=== PATIENT | female | born 1945 | race Caucasian/White ===

== ENCOUNTER → 2016-06-12 | Outpatient (CLI) | payer MEDICARE, BC ==
[~2016-06-12] MED LIST: ATENOLOL; ATIVAN 0.50.5 MG/TAB PO; BACTRIM DS 8001 TAB PO; CARAFATE 1GM1 G PO; CELEXA 20MG20 MG/TAB PO; COVERA-HS240 MG PO; DESYREL; DIFLUCAN200 MG PO; DILAUDID 2MG TAB2 MG PO; ESCITALOPRAM; ESKALITH; ESKALITH C450 MG/TAB PO; FLEXERIL 1010 MG/TAB PO; FUROSEMIDE; LEXAPRO 5MG5 MG PO; LIPITOR20 MG PO; MAGIC MOUTH PO; NEURONTIN100 MG/CAP PO; NEXIUM 40MG40 MG PO; NEXIUM PO; NORCO 325 MG-51 TAB PO; NORCO 325 MG-7.1 TAB PO; PAMELOR50 MG PO; PERCOCET 325 MG1 TAB PO; PHENERGAN 25 TA25 MG PO; PHENERGAN25 MG RC; PLAVIX 75MG TAB75 MG PO; PREMARIN .3MG0.3 MG PO; PREMARIN0.625 MG PO; PRINIVIL20 MG PO; TOPAMAX 100MG100 M1 PO; VERAPAMIL
== END ==
LOC: COL.RAD 10:42
DX: M25.572 Pain in left ankle and joints of left foot (principal)
CPT/HCPCS: J3301

== ENCOUNTER 2016-06-25 15:46 | Emergency (ER) | payer MEDICARE, BC ==
[~2016-06-25] VITALS: Ht 160 cm; Wt 90.9 kg
[~2016-06-25 15:46] MED LIST changes: -BACTRIM DS 8001 TAB PO; -DIFLUCAN200 MG PO; -LIPITOR20 MG PO; -MAGIC MOUTH PO; -NEURONTIN100 MG/CAP PO; -PLAVIX 75MG TAB75 MG PO; -PRINIVIL20 MG PO
[2016-06-25 15:50] VITALS: TEMP 98.1
[2016-06-25 16:03] LABS: BASO % 0.2 % (0.0-2.0); EOS # 0.1 (0.0-0.7); EOS % 0.4 % (0-4.0); GRAN # 8.4 (1.4-6.5); HEMATOCRIT 42.3 % (37.0-47.0); HEMOGLOBIN 13.4 g/dl (12.5-16.0); LYMPH % 29.1 % (20.0-51.0); MEAN CELL VOLUME 91 fl (80.0-100.0); MEAN CORPUSCULAR HEMOGLOBIN 29 pg (27.0-31.0); MEAN CORPUSCULAR HGB CONC 32 g/dl (33.0-37.0); MEAN PLATELET VOLUME 9.2 fl (7.4-10.4); MONO # 1.1 (0.1-0.6); MONO % 7.7 % (1.7-9.3); PLATELET COUNT 321 K/mm3 (130-400); RED BLOOD COUNT 4.64 M/mm3 (4.10-5.30); REDCELL DISTRIBUTION WIDTH-CV 16.8 % (11.5-14.5); WHITE BLOOD COUNT 13.6 K/mm3 (4.8-10.8)
[2016-06-25 16:09] LABS: PROTHROMBIN TIME 10.9 SECONDS (9.7-12.8)
[2016-06-25 16:12] LABS: PARTIAL THROMBOPLASTIN TIME 26.5 SECONDS (26.0-37.0)
[2016-06-25 16:13] LABS: ALANINE AMINOTRANSFERASE 43 U/L (9-52); ALBUMIN 4.1 gm/dL (3.5-5.0); ALKALINE PHOSPHATASE 103 U/L (50-136); ANION GAP 12 mmol/L (7-16); BILIRUBIN,TOTAL 0.6 mg/dL (0.0-1.0); BLOOD UREA NITROGEN 22 mg/dL (7-17); CALCIUM 9.1 mg/dL (8.4-10.2); CARBON DIOXIDE 26 mmol/L (22-30); CHLORIDE 104 mmol/L (98-107); CREATININE, serum 0.86 mg/dL (0.52-1.25); GLUCOSE 79 mg/dL (74-106); LIPASE 194 U/L (23-300); POTASSIUM 4.5 mmol/L (3.4-5.0); SODIUM 141 mmol/L (137-145); TOTAL PROTEIN 7.7 gm/dL (6.4-8.2)
[2016-06-25 16:25] LABS: B-TYPE NATRIURETIC PEPTIDE 119 pg/mL (0-125)
[2016-06-25 16:27] LABS: TROPONIN-I < 0.012 ng/mL (0.000-0.034)
[2016-06-25 16:52] VITALS: BP 164/88; PULSE 76
[2016-06-25] MEDS ORDERED: DIFLUCAN200 MG PO (16:57)
[2016-06-25] MEDS ORDERED: MAGIC MOUTH PO (16:57)
== END 2016-06-25 17:20 | disposition home or self-care (01) ==
LOC: COL.ER 15:46
PROVIDERS: Emergency Medicine
DX: B37.0 Candidal stomatitis (principal); K05.10 Chronic gingivitis, plaque induced; I10 Essential (primary) hypertension

== ENCOUNTER → 2016-08-08 | Outpatient (REF) ==
[~2016-08-08] MED LIST changes: +BACTRIM DS 8001 TAB PO; +DIFLUCAN200 MG PO; +LIPITOR20 MG PO; +MAGIC MOUTH PO; +NEURONTIN100 MG/CAP PO; +PLAVIX 75MG TAB75 MG PO; +PRINIVIL20 MG PO
== END ==
LOC: ZLAB.WCH 15:08
DX: Z01.89 Encounter for other specified special examinations (principal)

== ENCOUNTER → 2016-09-22 | Outpatient (CLI) | payer MEDICARE, BC ==
[2016-09-22 18:13] LABS: BASO % 0.5 % (0.0-2.0); EOS # 0.2 (0.0-0.7); EOS % 2.3 % (0-4.0); GRAN # 4.1 (1.4-6.5); GRAN % 52.7 % (42.2-75.2); LYMPH # 2.9 (1.2-3.4); LYMPH % 37.4 % (20.0-51.0); MEAN CELL VOLUME 93 fl (80.0-100.0); MEAN CORPUSCULAR HGB CONC 32 g/dl (33.0-37.0); MEAN PLATELET VOLUME 9.9 fl (7.4-10.4); MONO # 0.5 (0.1-0.6); MONO % 6.6 % (1.7-9.3); PLATELET COUNT 310 K/mm3 (130-400); RED BLOOD COUNT 3.68 M/mm3 (4.10-5.30); REDCELL DISTRIBUTION WIDTH-CV 17.4 % (11.5-14.5); WHITE BLOOD COUNT 7.7 K/mm3 (4.8-10.8)
[2016-09-22 18:26] LABS: ADJUSTED CALCIUM 9.4 mg/dL (8.4-10.2); ALBUMIN 3.8 gm/dL (3.5-5.0); BILIRUBIN,TOTAL 0.7 mg/dL (0.0-1.0); CALCIUM 9.2 mg/dL (8.4-10.2); CREATININE, serum 0.85 mg/dL (0.52-1.25); HEMATOCRIT 34.2 % (37.0-47.0); HEMOGLOBIN 10.9 g/dl (12.5-16.0); MEAN CORPUSCULAR HEMOGLOBIN 30 pg (27.0-31.0); TOTAL PROTEIN 6.9 gm/dL (6.4-8.2)
== END ==
LOC: COL.LAB 17:25
PROVIDERS: Physician Assistant
DX: R60.9 Edema, unspecified (principal)

== ENCOUNTER 2016-10-25 12:53 | Observation (INO) | payer MEDICARE, BC ==
[~2016-10-25] VITALS: Ht 160 cm; Wt 95.0 kg
[~2016-10-25 12:53] MED LIST changes: -BACTRIM DS 8001 TAB PO; -LIPITOR20 MG PO; -NEURONTIN100 MG/CAP PO; -PLAVIX 75MG TAB75 MG PO; -PRINIVIL20 MG PO
[2016-10-25] MEDS ORDERED: PRINIVIL20 MG PO (13:18)
[2016-10-25] MEDS ORDERED: FLEXERIL 1010 MG/TAB PO (13:18)
[2016-10-25] MEDS ORDERED: NEURONTIN100 MG/CAP PO (13:19)
[2016-10-25 13:32] LABS: BASO % 0.3 % (0.0-2.0); EOS # 0.1 (0.0-0.7); EOS % 1.8 % (0-4.0); GRAN # 4.4 (1.4-6.5); GRAN % 55.9 % (42.2-75.2); LYMPH # 2.8 (1.2-3.4); LYMPH % 35.9 % (20.0-51.0); MEAN CELL VOLUME 91 fl (80.0-100.0); MEAN CORPUSCULAR HGB CONC 31 g/dl (33.0-37.0); MEAN PLATELET VOLUME 9.4 fl (7.4-10.4); MONO # 0.5 (0.1-0.6); MONO % 5.8 % (1.7-9.3); PLATELET COUNT 285 K/mm3 (130-400); RED BLOOD COUNT 3.93 M/mm3 (4.10-5.30); REDCELL DISTRIBUTION WIDTH-CV 16.9 % (11.5-14.5); WHITE BLOOD COUNT 7.9 K/mm3 (4.8-10.8)
[2016-10-25 13:38] LABS: HEMATOCRIT 35.9 % (37.0-47.0); HEMOGLOBIN 11.2 g/dl (12.5-16.0); MEAN CORPUSCULAR HEMOGLOBIN 28 pg (27.0-31.0)
[2016-10-25 13:44] LABS: ADJUSTED CALCIUM 8.7 mg/dL (8.4-10.2); ALBUMIN 4.2 gm/dL (3.5-5.0); BILIRUBIN,TOTAL 0.6 mg/dL (0.0-1.0); CALCIUM 8.9 mg/dL (8.4-10.2); CREATININE, serum 1.08 mg/dL (0.52-1.25); POTASSIUM 4.5 mmol/L (3.4-5.0); TOTAL PROTEIN 7.7 gm/dL (6.4-8.2)
[2016-10-25] MEDS ORDERED: BACTRIM DS 8001 TAB PO (15:31)
[2016-10-25 17:33] VITALS: BP 138/57; PULSE 80; TEMP 98.1
[2016-10-25 18:26] LABS: PHOSPHOROUS 3.3 mg/dL (2.5-4.5)
[2016-10-25 22:00] LABS: PH 6 (5-8); SQUAMOUS EPITHELIAL 0-2 /hpf; URINE APPEARANCE Clear; URINE BACTERIA None Seen /hpf; URINE BILIRUBIN Negative (NEGATIVE); URINE BLOOD Negative (NEGATIVE); URINE COLOR Yellow; URINE GLUCOSE Negative (NEGATIVE); URINE KETONE Negative (NEGATIVE); URINE RBC 0-2 /hpf; URINE UROBILINOGEN Negative (NEGATIVE); URINE WBC 0-2 /hpf
[2016-10-25 22:13] VITALS: BP 138/42; PULSE 83; TEMP 98.6
[2016-10-25 23:45] VITALS: BP 122/50; PULSE 86; TEMP 98.2
[2016-10-26 03:57] VITALS: BP 121/59; PULSE 87; TEMP 97.1
[2016-10-26 08:43] VITALS: BP 119/49; PULSE 80; TEMP 98
[2016-10-26 11:57] VITALS: BP 148/60; PULSE 79; TEMP 97.8
[2016-10-26 16:14] VITALS: BP 133/61; PULSE 77; TEMP 98.1
[2016-10-26 21:35] VITALS: BP 129/78; PULSE 83; TEMP 97.9
[2016-10-27 01:08] VITALS: BP 132/56; PULSE 85; TEMP 97.9
[2016-10-27 04:22] VITALS: BP 142/59; PULSE 81; TEMP 97.8
[2016-10-27 07:59] VITALS: BP 146/55; PULSE 80
[2016-10-27] MEDS ORDERED: PLAVIX 75MG TAB75 MG PO (09:34)
[2016-10-27 11:51] VITALS: BP 131/53; PULSE 79; TEMP 98.1
[2016-10-27] MEDS ORDERED: LIPITOR20 MG PO (14:40)
== END 2016-10-27 15:21 | disposition home or self-care (01) ==
LOC: COL.ER 12:53 → MEDICAL 15:09
PROVIDERS: Family Medicine; Physician Assistant
DX: I69.328 Other speech and language deficits following cerebral infarction (principal); I10 Essential (primary) hypertension; K21.9 Gastro-esophageal reflux disease without esophagitis; G89.29 Other chronic pain; M54.9 Dorsalgia, unspecified; R53.1 Weakness; M81.0 Age-related osteoporosis without current pathological fracture; N39.0 Urinary tract infection, site not specified; M85.80 Other specified disorders of bone density and structure, unspecified site; J98.11 Atelectasis; I51.7 Cardiomegaly; R09.89 Other specified symptoms and signs involving the circulatory and respiratory systems; I35.0 Nonrheumatic aortic (valve) stenosis; Z87.891 Personal history of nicotine dependence
CPT/HCPCS: 99232-AI; A9585; G0378; G8978-GP; G8979-GP; G8987-GO; G8988-GO; G9162-GN; G9163-GN; G9164-GN; J1650; J7030

== ENCOUNTER 2017-02-06 12:22 | Emergency (ER) | payer MEDICARE, BC ==
[~2017-02-06] VITALS: Ht 160 cm; Wt 96.4 kg
[~2017-02-06 12:22] MED LIST changes: +BACTRIM DS 8001 TAB PO; +LIPITOR20 MG PO; +NEURONTIN100 MG/CAP PO; +PLAVIX 75MG TAB75 MG PO; +PRINIVIL20 MG PO
[2017-02-06 12:27] VITALS: TEMP 97.3
[2017-02-06 13:21] LABS: BASO % 0.4 % (0.0-2.0); EOS # 0.2 (0.0-0.7); EOS % 2.8 % (0-4.0); GRAN # 3.1 (1.4-6.5); GRAN % 45.8 % (42.2-75.2); LYMPH % 44.4 % (20.0-51.0); MEAN CELL VOLUME 85 fl (80.0-100.0); MEAN CORPUSCULAR HGB CONC 31 g/dl (33.0-37.0); MEAN PLATELET VOLUME 10.3 fl (7.4-10.4); MONO # 0.4 (0.1-0.6); MONO % 6.3 % (1.7-9.3); PLATELET COUNT 280 K/mm3 (130-400); RED BLOOD COUNT 4.02 M/mm3 (4.10-5.30); REDCELL DISTRIBUTION WIDTH-CV 18.9 % (11.5-14.5); WHITE BLOOD COUNT 6.7 K/mm3 (4.8-10.8)
[2017-02-06 13:25] LABS: ADJUSTED CALCIUM 9.2 mg/dL (8.4-10.2); ALANINE AMINOTRANSFERASE 26 U/L (9-52); ALBUMIN 4.1 gm/dL (3.5-5.0); ALKALINE PHOSPHATASE 74 U/L (50-136); ANION GAP 14 mmol/L (7-16); BILIRUBIN,TOTAL 0.6 mg/dL (0.0-1.0); BLOOD UREA NITROGEN 13 mg/dL (7-17); CALCIUM 9.3 mg/dL (8.4-10.2); CARBON DIOXIDE 22 mmol/L (22-30); CHLORIDE 105 mmol/L (98-107); CREATININE, serum 0.89 mg/dL (0.52-1.25); GLUCOSE 113 mg/dL (74-106); POTASSIUM 4.4 mmol/L (3.4-5.0); SODIUM 141 mmol/L (137-145); TOTAL PROTEIN 7.4 gm/dL (6.4-8.2)
[2017-02-06 13:28] LABS: PROTHROMBIN TIME 10.8 SECONDS (9.7-12.8)
[2017-02-06 13:31] LABS: PARTIAL THROMBOPLASTIN TIME 19.7 SECONDS (26.0-37.0)
[2017-02-06 13:36] LABS: TROPONIN-I < 0.012 ng/mL (0.000-0.034)
[2017-02-06 13:52] LABS: HEMATOCRIT 34.3 % (37.0-47.0); HEMOGLOBIN 10.7 g/dl (12.5-16.0); MEAN CORPUSCULAR HEMOGLOBIN 27 pg (27.0-31.0)
[2017-02-06 16:49] VITALS: BP 120/63; PULSE 69
== END 2017-02-06 16:51 | disposition home or self-care (01) ==
LOC: COL.ER 12:22
PROVIDERS: Emergency Medicine
DX: R53.1 Weakness (principal); I10 Essential (primary) hypertension; K21.9 Gastro-esophageal reflux disease without esophagitis; E78.5 Hyperlipidemia, unspecified; Z86.73 Personal history of transient ischemic attack (TIA), and cerebral infarction without residual deficits; Z87.891 Personal history of nicotine dependence; Z90.89 Acquired absence of other organs; Z90.710 Acquired absence of both cervix and uterus; Z90.49 Acquired absence of other specified parts of digestive tract
CPT/HCPCS: J7040

== ENCOUNTER 2017-02-26 13:15 | Outpatient (RCR) | payer MEDICARE, BC | END 2017-05-20 | disposition home or self-care (01) | LOC: WSST | DX: I69.922 Dysarthria following unspecified cerebrovascular disease (principal); I69.920 Aphasia following unspecified cerebrovascular disease; I69.928 Other speech and language deficits following unspecified cerebrovascular disease | CPT/HCPCS: G9162-GN; G9163-GN ==

== ENCOUNTER → 2017-04-13 | Outpatient (CLI) | payer MEDICARE, BC | LOC: COL.RAD 14:08 | DX: M25.551 Pain in right hip (principal) | CPT/HCPCS: J3301; Q9967 ==

== ENCOUNTER 2017-06-11 08:38 | Outpatient (CLI) | payer MEDICARE, BC ==
[~2017-06-11] VITALS: Ht 160 cm; Wt 89.1 kg
[2017-06-11] VITALS (8 sets, daily range): BP systolic 115–161; BP diastolic 63–85; PULSE 79–85
[~2017-06-11 08:38] MED LIST changes: +NEURONTIN300 MG/CAP PO; +PROTONIX 40MG T40 MG PO; +VERELAN240 MG PO; +ZANAFLEX 4MG TAB4 MG PO
== END 2017-06-11 12:00 | disposition home or self-care (01) ==
LOC: COL.RAD 08:38
DX: M48.062 Spinal stenosis, lumbar region with neurogenic claudication (principal); M43.16 Spondylolisthesis, lumbar region; M51.26 Other intervertebral disc displacement, lumbar region; Z98.1 Arthrodesis status; Z96.89 Presence of other specified functional implants; Z98.890 Other specified postprocedural states

== ENCOUNTER 2017-08-02 10:03 | Inpatient (IN) | payer MEDICARE, BC ==
[~2017-08-02] VITALS: Ht 160 cm; Wt 84.5 kg
[2017-08-02 10:22] LABS: BASO % 0.3 % (0.0-2.0); EOS # 0.1 (0.0-0.7); EOS % 1.7 % (0-4.0); GRAN % 57.7 % (42.2-75.2); LYMPH # 2.2 (1.2-3.4); LYMPH % 32.1 % (20.0-51.0); MEAN CELL VOLUME 82 fl (80.0-100.0); MEAN CORPUSCULAR HGB CONC 32 g/dl (33.0-37.0); MEAN PLATELET VOLUME 9.6 fl (7.4-10.4); MONO # 0.6 (0.1-0.6); MONO % 8.1 % (1.7-9.3); PLATELET COUNT 268 K/mm3 (130-400); RED BLOOD COUNT 4.01 M/mm3 (4.10-5.30); REDCELL DISTRIBUTION WIDTH-CV 19.4 % (11.5-14.5)
[2017-08-02 10:23] LABS: HEMATOCRIT 32.7 % (37.0-47.0); HEMOGLOBIN 10.4 g/dl (12.5-16.0); MEAN CORPUSCULAR HEMOGLOBIN 26 pg (27.0-31.0)
[2017-08-02 10:30] LABS: INR 1.8 (0.8-3.0); PROTHROMBIN TIME 20.6 SECONDS (9.7-12.8)
[2017-08-02 10:32] LABS: PARTIAL THROMBOPLASTIN TIME 32.2 SECONDS (26.0-37.0)
[2017-08-02 10:39] LABS: ALANINE AMINOTRANSFERASE 29 U/L (9-52); ALBUMIN 3.5 gm/dL (3.5-5.0); ALKALINE PHOSPHATASE 72 U/L (50-136); ANION GAP 8 mmol/L (7-16); AST,SGOT 16 U/L (15-37); BILIRUBIN,TOTAL 0.5 mg/dL (0.0-1.0); BLOOD UREA NITROGEN 20 mg/dL (7-17); C-REACTIVE PROTEIN 1.3 mg/dL (0.0-0.9); CALCIUM 8.4 mg/dL (8.4-10.2); CARBON DIOXIDE 24 mmol/L (22-30); CHLORIDE 107 mmol/L (98-107); CREATININE, serum 1.23 mg/dL (0.52-1.25); GLUCOSE 92 mg/dL (74-106); SODIUM 139 mmol/L (137-145); TOTAL PROTEIN 6.5 gm/dL (6.4-8.2)
[2017-08-02] MEDS ORDERED: NORVASC 5MG5 MG/TAB PO (10:41)
[2017-08-02] MEDS ORDERED: LIPITOR20 MG PO (10:41)
[2017-08-02] MEDS ORDERED: ZESTRIL 20MG TA20 MG PO (10:42)
[2017-08-02] MEDS ORDERED: ELIQUIS 5MG PO (10:42)
[2017-08-02] MEDS ORDERED: NEURONTIN300 MG/CAP PO (10:42)
[2017-08-02] MEDS ORDERED: ZANAFLEX 4MG TAB4 MG PO (10:43)
[2017-08-02] MEDS ORDERED: PROTONIX 40MG T40 MG PO (10:43)
[2017-08-02] MEDS ORDERED: MULTAQ400 MG PO (10:43)
[2017-08-02 10:53] LABS: TROPONIN-I < 0.012 ng/mL (0.000-0.034)
[2017-08-02 11:52] LABS: ERYTHROCYTE SEDIMENTATION RATE 25 mm/hr (0-30)
[2017-08-02 13:20] VITALS: BP 99/64; PULSE 109; TEMP 97.6
[2017-08-02 15:32] VITALS: BP 113/65; PULSE 110; TEMP 97.7
[2017-08-02 16:45] VITALS: BP 106/62; BP 110/66; PULSE 100; PULSE 97
[2017-08-02 16:46] VITALS: BP 98/52; PULSE 111
[2017-08-02 19:07] VITALS: BP 127/57; PULSE 106; TEMP 97.8
[2017-08-02 23:29] VITALS: BP 103/57; PULSE 98; TEMP 98.1
[2017-08-03] VITALS (18 sets, daily range): BP systolic 97–132; BP diastolic 52–98; PULSE 92–123; TEMP 97.6–9831
[2017-08-03 06:52] LABS: BASO % 0.4 % (0.0-2.0); EOS # 0.2 (0.0-0.7); EOS % 2.9 % (0-4.0); GRAN # 2.6 (1.4-6.5); HEMATOCRIT 29.3 % (37.0-47.0); HEMOGLOBIN 9.1 g/dl (12.5-16.0); LYMPH # 2.3 (1.2-3.4); LYMPH % 41.2 % (20.0-51.0); MEAN CELL VOLUME 84 fl (80.0-100.0); MEAN CORPUSCULAR HEMOGLOBIN 26 pg (27.0-31.0); MEAN CORPUSCULAR HGB CONC 31 g/dl (33.0-37.0); MEAN PLATELET VOLUME 9.9 fl (7.4-10.4); MONO # 0.5 (0.1-0.6); MONO % 9.3 % (1.7-9.3); PLATELET COUNT 241 K/mm3 (130-400)
[2017-08-03 07:08] LABS: CALCIUM 7.2 mg/dL (8.4-10.2); CREATININE, serum 0.79 mg/dL (0.52-1.25); POTASSIUM 3.7 mmol/L (3.4-5.0)
[2017-08-03 09:02] LABS: IRON,SERUM 14 ug/dL (35-150)
[2017-08-03 09:11] LABS: TOTAL IRON BINDING CAPACITY 291 ug/dL (265-497)
[2017-08-03 09:38] LABS: FERRITIN 10 ng/mL (11-264)
[2017-08-03] MEDS ORDERED: LIDODERM 5% PATC1 EA TP (16:08)
[2017-08-03] MEDS ORDERED: FERRLECIT62.5 MG/5 IV (16:11)
[2017-08-03] MEDS ORDERED: NATURAL IRON65 MG PO (16:12)
[2017-08-03] MEDS ORDERED: PLAVIX 75MG TAB75 MG PO (16:17)
[2017-08-03] MEDS ORDERED: ELIQUIS 5MG PO (16:17)
== END 2017-08-03 18:54 | disposition home or self-care (01) | DRG 287 ==
LOC: COL.ER 10:03 → MEDICAL 11:18
PROVIDERS: Family Medicine; Physician Assistant
PROC: B2111ZZ Fluoroscopy of Multiple Coronary Arteries using Low Osmolar Contrast (ICD-10-PCS; principal; 2017-08-03)
PROC: B2151ZZ Fluoroscopy of Left Heart using Low Osmolar Contrast (ICD-10-PCS; 2017-08-03)
DX: I48.0 Paroxysmal atrial fibrillation (principal); Z66 Do not resuscitate; R07.89 Other chest pain; I10 Essential (primary) hypertension; M54.5 Low back pain; G89.29 Other chronic pain; I87.2 Venous insufficiency (chronic) (peripheral); Z87.891 Personal history of nicotine dependence; K21.9 Gastro-esophageal reflux disease without esophagitis; D50.9 Iron deficiency anemia, unspecified; Z85.41 Personal history of malignant neoplasm of cervix uteri
CPT/HCPCS: 99222-AI; 99239; C1760; C1894; J2060; J2250; J2916; J3010; J7030; Q9967

== ENCOUNTER 2017-08-06 07:30 | Outpatient (RCR) | payer MEDICARE, BC ==
[2017-08-04 08:07] VITALS: BP 125/75; PULSE 106; TEMP 97.7
[2017-08-05 07:38] VITALS: BP 105/61; PULSE 65; TEMP 98.7
[~2017-08-06] VITALS: Ht 160 cm; Wt 84.0 kg
[~2017-08-06 07:30] MED LIST changes: +ELIQUIS 5MG PO; +FERRLECIT62.5 MG/5 IV; +LIDODERM 5% PATC1 EA TP; +MULTAQ400 MG PO; +NATURAL IRON65 MG PO; +NORVASC 5MG5 MG/TAB PO; +ZESTRIL 20MG TA20 MG PO
[2017-08-06 07:45] VITALS: BP 94/42; PULSE 136; TEMP 97.4
[2017-08-06] MEDS ORDERED: PLAVIX 75MG TAB75 MG PO (07:52)
[2017-08-06] MEDS ORDERED: ELIQUIS 5MG PO (07:52)
[2017-08-06] MEDS ORDERED: FERROUS SU325 MG/TAB PO (07:53)
[2017-08-06] MEDS ORDERED: LIDODERM 5% PATC1 EA TP (07:54)
[2017-08-06 08:47] VITALS: BP 99/41; PULSE 124
[2017-08-06] MEDS ORDERED: LEXAPRO 10MG10 MG PO (10:41)
[2017-08-06] MEDS ORDERED: PACERONE200 MG PO (11:38)
== END 2017-08-06 12:20 | disposition home or self-care (01) ==
LOC: EUO 07:30
DX: D50.9 Iron deficiency anemia, unspecified (principal)
CPT/HCPCS: J2916

== ENCOUNTER 2017-08-06 08:52 | Emergency (ER) | payer MEDICARE, BC ==
[~2017-08-06] VITALS: Ht 160 cm; Wt 84.1 kg
[~2017-08-06 08:52] MED LIST changes: +FERROUS SU325 MG/TAB PO
[2017-08-06 08:56] VITALS: TEMP 97.8
[2017-08-06 09:37] LABS: BASO % 0.3 % (0.0-2.0); EOS # 0.1 (0.0-0.7); EOS % 1.7 % (0-4.0); GRAN # 4.1 (1.4-6.5); GRAN % 63.4 % (42.2-75.2); HEMATOCRIT 32.8 % (37.0-47.0); HEMOGLOBIN 10.3 g/dl (12.5-16.0); LYMPH # 1.8 (1.2-3.4); MEAN CELL VOLUME 83 fl (80.0-100.0); MEAN CORPUSCULAR HEMOGLOBIN 26 pg (27.0-31.0); MEAN CORPUSCULAR HGB CONC 31 g/dl (33.0-37.0); MEAN PLATELET VOLUME 9.5 fl (7.4-10.4); MONO # 0.5 (0.1-0.6); MONO % 7.3 % (1.7-9.3); PLATELET COUNT 243 K/mm3 (130-400); RED BLOOD COUNT 3.97 M/mm3 (4.10-5.30); REDCELL DISTRIBUTION WIDTH-CV 19.8 % (11.5-14.5)
[2017-08-06 09:49] LABS: ALANINE AMINOTRANSFERASE 29 U/L (9-52); ALBUMIN 3.6 gm/dL (3.5-5.0); ALKALINE PHOSPHATASE 64 U/L (50-136); ANION GAP 12 mmol/L (7-16); AST,SGOT 17 U/L (15-37); BILIRUBIN,TOTAL 0.3 mg/dL (0.0-1.0); BLOOD UREA NITROGEN 8 mg/dL (7-17); C-REACTIVE PROTEIN 1.1 mg/dL (0.0-0.9); CALCIUM 8.8 mg/dL (8.4-10.2); CARBON DIOXIDE 27 mmol/L (22-30); CHLORIDE 107 mmol/L (98-107); CREATININE, serum 0.98 mg/dL (0.52-1.25); GLUCOSE 109 mg/dL (74-106); POTASSIUM 3.6 mmol/L (3.4-5.0); SODIUM 145 mmol/L (137-145); TOTAL PROTEIN 6.5 gm/dL (6.4-8.2)
[2017-08-06 10:07] LABS: TROPONIN-I < 0.012 ng/mL (0.000-0.034)
[2017-08-06] MEDS ORDERED: LEXAPRO 10MG10 MG PO (10:41)
[2017-08-06 11:02] LABS: COLLECTION METHOD CLEAN CATCH
[2017-08-06 11:13] LABS: MUCOUS Present /lpf; PH 6 (5-8); URINE APPEARANCE Hazy; URINE BACTERIA Rare /hpf; URINE BILIRUBIN Negative (NEGATIVE); URINE BLOOD Negative (NEGATIVE); URINE COLOR Yellow; URINE GLUCOSE Negative (NEGATIVE); URINE KETONE Negative (NEGATIVE); URINE LEUKOCYTE ESTERASE Negative (NEGATIVE); URINE NITRATE Negative (NEGATIVE); URINE PROTEIN(semi-quant) Negative (NEGATIVE); URINE RBC 0-2 /hpf; URINE UROBILINOGEN Negative (NEGATIVE)
[2017-08-06] MEDS ORDERED: PACERONE200 MG PO (11:38)
[2017-08-06 12:29] VITALS: BP 121/74; PULSE 87
== END 2017-08-06 12:28 | disposition home or self-care (01) ==
LOC: COL.ER 08:52
PROVIDERS: Emergency Medicine
DX: R00.0 Tachycardia, unspecified (principal); T45.4X5A Adverse effect of iron and its compounds, initial encounter; I48.91 Unspecified atrial fibrillation; I10 Essential (primary) hypertension; E78.5 Hyperlipidemia, unspecified; D50.9 Iron deficiency anemia, unspecified; Z86.73 Personal history of transient ischemic attack (TIA), and cerebral infarction without residual deficits; Z79.01 Long term (current) use of anticoagulants; Z79.02 Long term (current) use of antithrombotics/antiplatelets
CPT/HCPCS: J1160; J7030

== ENCOUNTER → 2017-10-16 | Outpatient (CLI) | payer MEDICARE, BC ==
[~2017-10-16] MED LIST changes: +LEXAPRO 10MG10 MG PO; +PACERONE200 MG PO
[2017-10-16 10:52] LABS: ALBUMIN 3.8 gm/dL (3.5-5.0); BILIRUBIN,TOTAL 0.6 mg/dL (0.0-1.0); CALCIUM 9.7 mg/dL (8.4-10.2); CREATININE, serum 0.86 mg/dL (0.52-1.25); POTASSIUM 3.7 mmol/L (3.4-5.0); TOTAL PROTEIN 7.2 gm/dL (6.4-8.2)
== END ==
LOC: COL.LAB 10:10
PROVIDERS: Internal Medicine Cardiovascular Disease
DX: E78.5 Hyperlipidemia, unspecified (principal)

== ENCOUNTER → 2017-12-20 | Outpatient (CLI) | payer MEDICARE, BC | LOC: COL.RAD 09:21 | DX: N20.0 Calculus of kidney (principal); K57.30 Diverticulosis of large intestine without perforation or abscess without bleeding; R10.9 Unspecified abdominal pain; D50.9 Iron deficiency anemia, unspecified; Z98.890 Other specified postprocedural states | CPT/HCPCS: Q9967 ==

== ENCOUNTER 2018-03-13 12:12 | Emergency (ER) | payer MEDICARE, BC ==
[~2018-03-13] VITALS: Ht 160 cm; Wt 79.5 kg
[2018-03-13 12:23] VITALS: BP 123/58; TEMP 97.3
[2018-03-13 13:07] LABS: BASO % 0.2 % (0.0-2.0); EOS # 0.1 (0.0-0.7); EOS % 0.9 % (0-4.0); GRAN # 8.6 (1.4-6.5); GRAN % 66.5 % (42.2-75.2); HEMATOCRIT 39.7 % (37.0-47.0); HEMOGLOBIN 13.2 g/dl (12.5-16.0); LYMPH # 3.1 (1.2-3.4); LYMPH % 23.8 % (20.0-51.0); MEAN CELL VOLUME 96 fl (80.0-100.0); MEAN CORPUSCULAR HEMOGLOBIN 32 pg (27.0-31.0); MEAN CORPUSCULAR HGB CONC 33 g/dl (33.0-37.0); MEAN PLATELET VOLUME 10.6 fl (7.4-10.4); MONO % 7.7 % (1.7-9.3); PLATELET COUNT 185 K/mm3 (130-400); RED BLOOD COUNT 4.12 M/mm3 (4.10-5.30); REDCELL DISTRIBUTION WIDTH-CV 13.1 % (11.5-14.5)
[2018-03-13 13:10] LABS: INR 1.6 (0.8-3.0); PROTHROMBIN TIME 18.4 SECONDS (9.7-12.8)
[2018-03-13 13:12] LABS: PARTIAL THROMBOPLASTIN TIME 32.7 SECONDS (26.0-37.0)
[2018-03-13 13:16] LABS: ALBUMIN 3.8 gm/dL (3.5-5.0); BILIRUBIN,TOTAL 0.8 mg/dL (0.0-1.0); CALCIUM 8.6 mg/dL (8.4-10.2); CREATININE, serum 1.17 mg/dL (0.52-1.25); POTASSIUM 4.2 mmol/L (3.4-5.0); TOTAL PROTEIN 6.9 gm/dL (6.4-8.2)
[2018-03-13] MEDS ORDERED: LYRICA 75MG CAP75 MG PO (13:45)
[2018-03-13] MEDS ORDERED: PROLIA60 MG/ML SQ (13:47)
[2018-03-13] MEDS ORDERED: NORCO 325 MG-7.1 TAB PO (15:42)
[2018-03-13 17:20] LABS: COLLECTION METHOD CLEAN CATCH
[2018-03-13 17:33] LABS: HYALINE CAST >12 /lpf; MUCOUS Present /lpf; PH 5 (5-8); SQUAMOUS EPITHELIAL 0-2 /hpf; URINE APPEARANCE Clear; URINE BACTERIA None Seen /hpf; URINE BILIRUBIN Negative (NEGATIVE); URINE BLOOD 3+ (NEGATIVE); URINE COLOR Yellow; URINE GLUCOSE Negative (NEGATIVE); URINE KETONE Negative (NEGATIVE); URINE LEUKOCYTE ESTERASE Negative (NEGATIVE); URINE NITRATE Negative (NEGATIVE); URINE PROTEIN(semi-quant) Negative (NEGATIVE); URINE RBC >50 /hpf; URINE UROBILINOGEN Negative (NEGATIVE)
[2018-03-13 17:55] VITALS: PULSE 64
== END 2018-03-13 17:55 | disposition home or self-care (01) ==
LOC: COL.ER 12:12
PROVIDERS: Emergency Medicine
DX: S52.122A Displaced fracture of head of left radius, initial encounter for closed fracture (principal); S22.32XA Fracture of one rib, left side, initial encounter for closed fracture; S00.03XA Contusion of scalp, initial encounter; I10 Essential (primary) hypertension; I48.91 Unspecified atrial fibrillation; Z79.01 Long term (current) use of anticoagulants; Z86.73 Personal history of transient ischemic attack (TIA), and cerebral infarction without residual deficits; W10.9XXA Fall (on) (from) unspecified stairs and steps, initial encounter
CPT/HCPCS: J3010; Q4050

== ENCOUNTER 2018-03-22 14:41 | Emergency (ER) | payer MEDICARE, BC ==
[~2018-03-22] VITALS: Ht 160 cm; Wt 79.5 kg
[~2018-03-22 14:41] MED LIST changes: +LYRICA 75MG CAP75 MG PO; +PROLIA60 MG/ML SQ
[2018-03-22 14:43] VITALS: TEMP 98.2
[2018-03-22 15:33] LABS: BASO % 0.4 % (0.0-2.0); EOS # 0.2 (0.0-0.7); EOS % 2.4 % (0-4.0); GRAN # 5.5 (1.4-6.5); HEMOGLOBIN 12.5 g/dl (12.5-16.0); LYMPH # 2.8 (1.2-3.4); LYMPH % 29.6 % (20.0-51.0); MEAN CELL VOLUME 94 fl (80.0-100.0); MEAN CORPUSCULAR HEMOGLOBIN 32 pg (27.0-31.0); MEAN CORPUSCULAR HGB CONC 34 g/dl (33.0-37.0); MEAN PLATELET VOLUME 9.7 fl (7.4-10.4); MONO # 0.8 (0.1-0.6); MONO % 8.4 % (1.7-9.3); PLATELET COUNT 318 K/mm3 (130-400); RED BLOOD COUNT 3.94 M/mm3 (4.10-5.30); REDCELL DISTRIBUTION WIDTH-CV 13.2 % (11.5-14.5)
[2018-03-22 15:37] LABS: INR 1.4 (0.8-3.0); PROTHROMBIN TIME 16.1 SECONDS (9.7-12.8)
[2018-03-22 15:49] LABS: ALBUMIN 3.8 gm/dL (3.5-5.0); BILIRUBIN,TOTAL 0.8 mg/dL (0.0-1.0); CALCIUM 7.9 mg/dL (8.4-10.2); CREATININE, serum 0.82 mg/dL (0.52-1.25); POTASSIUM 3.2 mmol/L (3.4-5.0); TOTAL PROTEIN 6.8 gm/dL (6.4-8.2)
[2018-03-22 15:55] LABS: COLLECTION METHOD CLEAN CATCH
[2018-03-22 16:06] LABS: MUCOUS Present /lpf; PH 6 (5-8); SQUAMOUS EPITHELIAL None Seen /hpf; URINE APPEARANCE Hazy; URINE BACTERIA Rare /hpf; URINE BILIRUBIN Negative (NEGATIVE); URINE BLOOD 2+ (NEGATIVE); URINE COLOR Amber; URINE GLUCOSE Negative (NEGATIVE); URINE KETONE Negative (NEGATIVE); URINE LEUKOCYTE ESTERASE 2+ (NEGATIVE); URINE NITRATE Positive (NEGATIVE); URINE PROTEIN(semi-quant) 1+ (NEGATIVE); URINE UROBILINOGEN >=4.0 mg/dL (NEGATIVE)
[2018-03-22 19:06] VITALS: BP 150/71; PULSE 66
== END 2018-03-22 19:13 | disposition short-term general hospital (02) ==
LOC: COL.ER 14:41
PROVIDERS: Emergency Medicine
DX: S52.122A Displaced fracture of head of left radius, initial encounter for closed fracture (principal); S32.10XA Unspecified fracture of sacrum, initial encounter for closed fracture; S22.089A Unspecified fracture of T11-T12 vertebra, initial encounter for closed fracture; N39.0 Urinary tract infection, site not specified; Z79.899 Other long term (current) drug therapy; W18.30XA Fall on same level, unspecified, initial encounter; Y92.009 Unspecified place in unspecified non-institutional (private) residence as the place of occurrence of the external cause
CPT/HCPCS: J0696; J3010; J7030

== ENCOUNTER 2018-05-20 13:26 | Emergency (ER) | payer MEDICARE, BC ==
[~2018-05-20] VITALS: Ht 160 cm; Wt 79.5 kg
[2018-05-20 13:32] VITALS: BP 159/73; TEMP 97.2
[2018-05-20 15:08] VITALS: PULSE 70
== END 2018-05-20 15:08 | disposition home or self-care (01) ==
LOC: COL.ER 13:26
DX: S92.351A Displaced fracture of fifth metatarsal bone, right foot, initial encounter for closed fracture (principal); I10 Essential (primary) hypertension; K21.9 Gastro-esophageal reflux disease without esophagitis; Z23 Encounter for immunization; Z98.890 Other specified postprocedural states; X50.0XXA Overexertion from strenuous movement or load, initial encounter; Y92.009 Unspecified place in unspecified non-institutional (private) residence as the place of occurrence of the external cause
CPT/HCPCS: Q4045

== ENCOUNTER 2018-11-27 11:04 | Emergency (ER) | payer MEDICARE, BC ==
[2018-11-27 11:08] VITALS: TEMP 97.1
[2018-11-27 12:14] LABS: BASO % 0.3 % (0.0-2.0); EOS # 0.2 (0.0-0.7); EOS % 2.1 % (0-4.0); GRAN # 6.5 (1.4-6.5); GRAN % 69.1 % (42.2-75.2); HEMATOCRIT 40.5 % (37.0-47.0); HEMOGLOBIN 13.3 g/dl (12.5-16.0); LYMPH # 1.9 (1.2-3.4); LYMPH % 20.4 % (20.0-51.0); MEAN CELL VOLUME 99 fl (80.0-100.0); MEAN CORPUSCULAR HEMOGLOBIN 33 pg (27.0-31.0); MEAN CORPUSCULAR HGB CONC 33 g/dl (33.0-37.0); MEAN PLATELET VOLUME 10.2 fl (7.4-10.4); MONO # 0.7 (0.1-0.6); MONO % 7.7 % (1.7-9.3); PLATELET COUNT 244 K/mm3 (130-400); RED BLOOD COUNT 4.09 M/mm3 (4.10-5.30); REDCELL DISTRIBUTION WIDTH-CV 13.3 % (11.5-14.5)
[2018-11-27] MEDS ORDERED: NORCO 325 MG-51 TAB PO (14:11)
[2018-11-27 14:30] VITALS: BP 153/54; PULSE 55
== END 2018-11-27 14:30 | disposition home or self-care (01) ==
LOC: COL.ER 11:04
PROVIDERS: Emergency Medicine
DX: S06.0X0A Concussion without loss of consciousness, initial encounter (principal); W10.9XXA Fall (on) (from) unspecified stairs and steps, initial encounter; Y92.009 Unspecified place in unspecified non-institutional (private) residence as the place of occurrence of the external cause
CPT/HCPCS: J1170

== ENCOUNTER → 2019-01-10 | Outpatient (CLI) | payer MEDICARE, BC | LOC: COL.RAD 12:22 | DX: M25.551 Pain in right hip (principal) | CPT/HCPCS: J3301; Q9967 ==

== ENCOUNTER → 2019-01-23 | Outpatient (CLI) | payer MEDICARE, BC ==
[~2019-01-23] MED LIST changes: +ASPIRIN 81M81 MG/TA2 PO; +LEXAPRO20 MG PO; +PRINIVIL10 MG PO; +ROBAXIN 50500 MG/TAB PO
== END ==
LOC: COL.RAD 12:26
DX: S32.9XXA Fracture of unspecified parts of lumbosacral spine and pelvis, initial encounter for closed fracture (principal); M16.0 Bilateral primary osteoarthritis of hip; M89.9 Disorder of bone, unspecified; Z90.710 Acquired absence of both cervix and uterus; Z98.1 Arthrodesis status

== ENCOUNTER 2019-01-24 07:48 | Day surgery (SDC) | payer MEDICARE, BC ==
[~2019-01-24] VITALS: Ht 152.4 cm; Wt 82.1 kg
[~2019-01-24 07:48] MED LIST changes: -ASPIRIN 81M81 MG/TA2 PO; -LEXAPRO20 MG PO; -PRINIVIL10 MG PO; -ROBAXIN 50500 MG/TAB PO
[2019-01-24] MEDS ORDERED: LEXAPRO20 MG PO (08:42)
[2019-01-24] MEDS ORDERED: ROBAXIN 50500 MG/TAB PO (08:42)
[2019-01-24] MEDS ORDERED: LIPITOR20 MG PO (08:42)
[2019-01-24] MEDS ORDERED: PROTONIX 40MG T40 MG PO (08:42)
[2019-01-24] MEDS ORDERED: LYRICA 75MG CAP75 MG PO (08:42)
[2019-01-24 08:43] VITALS: BP 159/61; PULSE 54; TEMP 97.2
[2019-01-24] MEDS ORDERED: PRINIVIL10 MG PO (08:43)
[2019-01-24] MEDS ORDERED: ASPIRIN 81M81 MG/TA2 PO (08:43)
[2019-01-24] MEDS ORDERED: NORVASC 5MG5 MG/TAB PO (08:43)
[2019-01-24] MEDS ORDERED: PACERONE200 MG PO (08:43)
--- NOTE | 2019-01-24 08:48 | NUR ---
Patient rounding completed. Denies any needs. Abx infusing.
[2019-01-24 10:15] VITALS: BP 140/52; PULSE 63; TEMP 97.4
--- NOTE | 2019-01-24 10:15 | NUR ---
Patient arrives to [facility] [place] [facility] [place], accompanied by PATIENT SCHEDULER Tesfaye and GLORIA Bah. She is drowsy, but easily aroused to voice and oriented. She denies any pain or nausea. She rolls to assess her operative site - covered with a clean, dry, intact dressing. Monitoring applied - VSS and WNL on room air. Offered and receives juice and ice cream to eat. Daughter at the bedside. Rep for stimulator talks with daughter and patient - they deny any questions. Call light in reach.
--- NOTE | 2019-01-24 10:24 | NUR ---
Office called and follow-up appt scheduled for 02-06-19 at 2:45pm. Patient notified.
[2019-01-24 10:30] VITALS: BP 109/81; PULSE 55
--- NOTE | 2019-01-24 10:30 | NUR ---
VSS and WNL on room air. Patient has had her ice cream. She is sleeping.
[2019-01-24 10:45] VITALS: BP 130/44; PULSE 60
--- NOTE | 2019-01-24 10:45 | NUR ---
Patient is resting in room, watching TV. Requests and receives more ice cream. Denies pain, nausea, or need.
[2019-01-24 11:00] VITALS: BP 155/45; PULSE 61
--- NOTE | 2019-01-24 11:05 | NUR ---
Patient has met discharge criteria. She states "I'm ready to go home". PIV removed with catheter intact and hemostasis achieved. Discharge instructions discussed, denies any questions, and verbalizes understanding. Changing to clothing independently. Waiting for ride home.
--- NOTE | 2019-01-24 11:42 | NUR ---
Patient escorted to exit via wheelchair. Discharged to home with ride in private vehicle at 1142.
== END 2019-01-24 11:42 | disposition home or self-care (01) ==
LOC: SDCO 07:48
DX: R33.9 Retention of urine, unspecified (principal); R32 Unspecified urinary incontinence; R39.11 Hesitancy of micturition; R35.1 Nocturia; R39.14 Feeling of incomplete bladder emptying; I48.91 Unspecified atrial fibrillation; G89.29 Other chronic pain; F32.9 Major depressive disorder, single episode, unspecified; K21.9 Gastro-esophageal reflux disease without esophagitis; E78.00 Pure hypercholesterolemia, unspecified; I10 Essential (primary) hypertension; E78.1 Pure hyperglyceridemia; M81.0 Age-related osteoporosis without current pathological fracture; E66.09 Other obesity due to excess calories; Z68.35 Body mass index [BMI] 35.0-35.9, adult; Z87.440 Personal history of urinary (tract) infections; Z85.43 Personal history of malignant neoplasm of ovary; Z90.710 Acquired absence of both cervix and uterus; Z91.040 Latex allergy status; Z88.6 Allergy status to analgesic agent; Z88.8 Allergy status to other drugs, medicaments and biological substances; Z85.51 Personal history of malignant neoplasm of bladder; Z82.49 Family history of ischemic heart disease and other diseases of the circulatory system; Z80.1 Family history of malignant neoplasm of trachea, bronchus and lung; Z80.6 Family history of leukemia; Z80.8 Family history of malignant neoplasm of other organs or systems
CPT/HCPCS: C1767; C1778; C1787; C1894; J1580; J2250; J2405; J2704; J3010; J7120

== ENCOUNTER → 2019-03-04 | Outpatient (CLI) | payer MEDICARE, BC ==
[~2019-03-04] MED LIST changes: +ASPIRIN 81M81 MG/TA2 PO; +LEXAPRO20 MG PO; +PRINIVIL10 MG PO; +ROBAXIN 50500 MG/TAB PO
== END ==
LOC: COL.RAD 07:30
DX: Z53.9 Procedure and treatment not carried out, unspecified reason (principal)

== ENCOUNTER → 2019-03-10 | Outpatient (CLI) | payer MEDICARE, BC | LOC: COL.RAD 09:35 | DX: M25.551 Pain in right hip (principal) ==

== ENCOUNTER 2019-06-12 11:57 | Day surgery (SDC) | payer MEDICARE, BC ==
[~2019-06-12] VITALS: Ht 165.1 cm; Wt 84.5 kg
[2019-06-12 12:54] VITALS: BP 157/76; PULSE 56; TEMP 97.2
[2019-06-12] MEDS ORDERED: TYLENOL 500MG500 MG PO (13:43)
[2019-06-12] MEDS ORDERED: COLACE 100100 MG/CAP PO (13:45)
[2019-06-12] MEDS ORDERED: MILK OF MA400 MG/52 PO (13:46)
[2019-06-12] MEDS ORDERED: MIRALAX PA17 GM/Dose PO (13:48)
[2019-06-12 14:50] VITALS: BP 127/43; PULSE 57; TEMP 98.2
--- NOTE | 2019-06-12 14:50 | NUR ---
Pt returned via cart from OR to [place] [facility]. A&O. Denies pain or nausea. Reports being cold, several warm blankets given. Requested pb toast and a pepsi. VSS-documented. Side rails up and call light in reach. Daughter not present at this time and unable to be reached by phone. Exofin surgical glue to surgical sites intact.
[2019-06-12 15:05] VITALS: BP 131/42; PULSE 69
[2019-06-12 15:20] VITALS: BP 128/43; PULSE 64
--- NOTE | 2019-06-12 16:40 | NUR ---
Pt tolerated pepsi and toast. VS remain stable-see flowsheet. Pt up to void with SBA, voided without difficulty. IV removed, pressure dressing applied. Pt dressed and incisions remain c/d/i with exofin. Discharge teaching completed with pt and daughter, verbalized understanding. Pt taken via wheelchair to private vehicle for dc home with daughter driving.
== END 2019-06-12 16:40 | disposition home or self-care (01) ==
LOC: SDCO 11:57
DX: R33.9 Retention of urine, unspecified (principal); I48.91 Unspecified atrial fibrillation; G89.29 Other chronic pain; M54.5 Low back pain; F32.9 Major depressive disorder, single episode, unspecified; E66.09 Other obesity due to excess calories; K21.9 Gastro-esophageal reflux disease without esophagitis; E78.00 Pure hypercholesterolemia, unspecified; I10 Essential (primary) hypertension; E78.1 Pure hyperglyceridemia; M81.0 Age-related osteoporosis without current pathological fracture; I25.10 Atherosclerotic heart disease of native coronary artery without angina pectoris; Z85.43 Personal history of malignant neoplasm of ovary; Z87.440 Personal history of urinary (tract) infections; Z90.710 Acquired absence of both cervix and uterus; Z91.040 Latex allergy status; Z88.8 Allergy status to other drugs, medicaments and biological substances; Z80.52 Family history of malignant neoplasm of bladder; Z82.49 Family history of ischemic heart disease and other diseases of the circulatory system; Z80.6 Family history of leukemia; Z80.1 Family history of malignant neoplasm of trachea, bronchus and lung; Z80.8 Family history of malignant neoplasm of other organs or systems; Z68.35 Body mass index [BMI] 35.0-35.9, adult; Z88.6 Allergy status to analgesic agent; Z86.73 Personal history of transient ischemic attack (TIA), and cerebral infarction without residual deficits
CPT/HCPCS: J0690; J2704; J7120

== ENCOUNTER → 2019-07-16 | Outpatient (CLI) | payer MEDICARE, BC ==
[~2019-07-16] MED LIST changes: +COLACE 100100 MG/CAP PO; +MILK OF MA400 MG/52 PO; +MIRALAX PA17 GM/Dose PO; +TYLENOL 500MG500 MG PO
== END ==
LOC: COL.RAD 12:36
DX: M25.551 Pain in right hip (principal)
CPT/HCPCS: J3301; Q9967

== ENCOUNTER 2019-08-08 13:35 | Outpatient (RCR) | payer MEDICARE, BC | END 2019-11-06 | disposition home or self-care (01) | LOC: MKS.ESL.PT | DX: R42 Dizziness and giddiness (principal) ==

== ENCOUNTER → 2019-11-28 | Outpatient (CLI) | payer MEDICARE, BC | LOC: COL.RAD 09:37 | DX: Z01.812 Encounter for preprocedural laboratory examination (principal); G31.9 Degenerative disease of nervous system, unspecified; R51 Headache; R42 Dizziness and giddiness ==

== ENCOUNTER 2020-02-04 21:28 | Emergency (ER) | payer MEDICARE, BC ==
[~2020-02-04] VITALS: Ht 152.4 cm; Wt 84.1 kg
[2020-02-04 21:33] VITALS: TEMP 97.6
[2020-02-04] MEDS ORDERED: LEXAPRO20 MG PO (21:47)
[2020-02-04 23:05] VITALS: BP 159/75; PULSE 74
== END 2020-02-04 23:05 | disposition home or self-care (01) ==
LOC: COL.ER 21:28
DX: S02.2XXA Fracture of nasal bones, initial encounter for closed fracture (principal); S16.1XXA Strain of muscle, fascia and tendon at neck level, initial encounter; S80.01XA Contusion of right knee, initial encounter; S60.211A Contusion of right wrist, initial encounter; R40.2410 Glasgow coma scale score 13-15, unspecified time; I10 Essential (primary) hypertension; F31.9 Bipolar disorder, unspecified; K21.9 Gastro-esophageal reflux disease without esophagitis; E78.5 Hyperlipidemia, unspecified; Z87.442 Personal history of urinary calculi; Z87.891 Personal history of nicotine dependence; Z88.6 Allergy status to analgesic agent; Z88.8 Allergy status to other drugs, medicaments and biological substances; W01.10XA Fall on same level from slipping, tripping and stumbling with subsequent striking against unspecified object, initial encounter; Y92.009 Unspecified place in unspecified non-institutional (private) residence as the place of occurrence of the external cause

== ENCOUNTER 2020-09-01 10:16 | Emergency (ER) | payer MEDICARE, BC ==
[~2020-09-01] VITALS: Ht 152.4 cm; Wt 81.8 kg
[~2020-09-01 10:16] MED LIST changes: +MACROBID 1100 MG/CAP PO
[2020-09-01 10:24] VITALS: TEMP 98
[2020-09-01 11:00] LABS: BASO % 0.2 % (0.0-2.0); EOS # 0.1 (0.0-0.7); EOS % 1.4 % (0-4.0); GRAN % 60.3 % (42.2-75.2); HEMATOCRIT 38.3 % (37.0-47.0); HEMOGLOBIN 12.3 g/dl (12.5-16.0); LYMPH # 2.7 (1.2-3.4); LYMPH % 27.1 % (20.0-51.0); MEAN CELL VOLUME 97 fl (80.0-100.0); MEAN CORPUSCULAR HEMOGLOBIN 31 pg (27.0-31.0); MEAN CORPUSCULAR HGB CONC 32 g/dl (33.0-37.0); MEAN PLATELET VOLUME 9.8 fl (7.4-10.4); MONO # 1.1 (0.1-0.6); MONO % 10.6 % (1.7-9.3); PLATELET COUNT 223 K/mm3 (130-400); RED BLOOD COUNT 3.96 M/mm3 (4.10-5.30); REDCELL DISTRIBUTION WIDTH-CV 13.6 % (11.5-14.5)
[2020-09-01 11:07] LABS: COLLECTION METHOD CLEAN CATCH
[2020-09-01 11:09] LABS: ALBUMIN 3.8 gm/dL (3.5-5.0); BILIRUBIN,TOTAL 0.4 mg/dL (0.0-1.0); C-REACTIVE PROTEIN 4.8 mg/dL (0.0-0.9); CALCIUM 8.6 mg/dL (8.4-10.2); CREATININE, serum 0.76 (0.52-1.25); POTASSIUM 4.2 mmol/L (3.4-5.0); TOTAL PROTEIN 6.9 gm/dL (6.4-8.2)
[2020-09-01 11:19] LABS: MUCOUS Present /lpf; PH 6 (5-8); SQUAMOUS EPITHELIAL 0-2 /hpf; URINE APPEARANCE Hazy; URINE BACTERIA None Seen /hpf; URINE BILIRUBIN Negative (NEGATIVE); URINE BLOOD Negative (NEGATIVE); URINE COLOR Yellow; URINE GLUCOSE Negative (NEGATIVE); URINE KETONE Negative (NEGATIVE); URINE LEUKOCYTE ESTERASE Negative (NEGATIVE); URINE NITRATE Negative (NEGATIVE); URINE PROTEIN(semi-quant) Negative (NEGATIVE); URINE UROBILINOGEN Negative (NEGATIVE)
[2020-09-01 12:00] VITALS: BP 147/84; PULSE 78
== END 2020-09-01 12:00 | disposition home or self-care (01) ==
LOC: COL.ER 10:16
PROVIDERS: Family Medicine
DX: R33.9 Retention of urine, unspecified (principal); Z90.710 Acquired absence of both cervix and uterus; Z90.49 Acquired absence of other specified parts of digestive tract; Z87.442 Personal history of urinary calculi; Z91.040 Latex allergy status; Z88.6 Allergy status to analgesic agent; Z88.8 Allergy status to other drugs, medicaments and biological substances; Z87.891 Personal history of nicotine dependence

== ENCOUNTER 2021-03-23 07:54 | Day surgery (SDC) | payer MEDICARE, BC ==
[~2021-03-23] VITALS: Ht 152.4 cm; Wt 81.8 kg
[2021-03-23 08:38] VITALS: BP 169/64; PULSE 69; TEMP 97.9
[2021-03-23] MEDS ORDERED: NORVASC 5MG5 MG/TAB PO (08:54)
[2021-03-23] MEDS ORDERED: PACERONE100 MG PO (08:56)
[2021-03-23] MEDS ORDERED: PROTONIX 40MG T40 MG PO (08:57)
[2021-03-23] MEDS ORDERED: LIPITOR20 MG PO (08:57)
[2021-03-23] MEDS ORDERED: PRINIVIL10 MG PO (08:58)
[2021-03-23] MEDS ORDERED: CYMBALTA 30MG30 MG PO (09:02)
[2021-03-23] MEDS ORDERED: LYRICA 75MG CAP75 MG PO (09:03)
[2021-03-23] MEDS ORDERED: ROBAXIN 50500 MG/TAB PO (09:04)
[2021-03-23] MEDS ORDERED: MAGNESIUM200 MG PO (09:05)
[2021-03-23] MEDS ORDERED: VITAMIN D31000 I1 PO (09:06)
[2021-03-23] MEDS ORDERED: NATURAL E400 IU PO (09:06)
[2021-03-23] MEDS ORDERED: VITAMIN B COMPL1 SGL PO (09:07)
[2021-03-23 10:22] VITALS: BP 132/55; PULSE 62
--- NOTE | 2021-03-23 10:22 | NUR ---
Patient returns to room 6 per cart from surgery accompanied by Justin CASTRO and Swathi RN. IV fluids infusing. Siderails up x2. Dressing clean and dry on the left foot. Patient denies pain or nausea. Given water to drink. Call light in reach.
[2021-03-23 10:37] VITALS: BP 126/49; PULSE 88
--- NOTE | 2021-03-23 10:37 | NUR ---
Eating toast and drinking coffee. Talks on cell phone.
[2021-03-23 10:52] VITALS: BP 104/80; PULSE 63
--- NOTE | 2021-03-23 10:52 | NUR ---
Sipping on coffee. Continues to deny pain.
[2021-03-23 11:07] VITALS: BP 119/79; PULSE 69
--- NOTE | 2021-03-23 11:07 | NUR ---
Continues to deny pain. IV fluids discontinued. Sipping on coffee. Patient is waiting to talk with Dr. Frias re: pain medications.
--- NOTE | 2021-03-23 11:45 | NUR ---
Dr. Frias in to talk with the patient and pain medication script called to [facility].
--- NOTE | 2021-03-23 12:00 | NUR ---
Patient is dressed and ride notified of discharge.
--- NOTE | 2021-03-23 12:23 | NUR ---
Patient dismissed to home driven by daughter and assisted into wheelchair and dismissed to home with instructions in hand.
== END 2021-03-23 12:23 | disposition home or self-care (01) ==
LOC: SDCO 07:54
DX: S93.115A Dislocation of interphalangeal joint of left lesser toe(s), initial encounter (principal); S93.145A Subluxation of metatarsophalangeal joint of left lesser toe(s), initial encounter; I12.9 Hypertensive chronic kidney disease with stage 1 through stage 4 chronic kidney disease, or unspecified chronic kidney disease; N18.31 Chronic kidney disease, stage 3a; E78.5 Hyperlipidemia, unspecified; F32.A Depression, unspecified; K21.9 Gastro-esophageal reflux disease without esophagitis; Z66 Do not resuscitate; I48.91 Unspecified atrial fibrillation; I38 Endocarditis, valve unspecified; I25.10 Atherosclerotic heart disease of native coronary artery without angina pectoris; M19.90 Unspecified osteoarthritis, unspecified site; Z98.84 Bariatric surgery status; Z79.899 Other long term (current) drug therapy; Z87.891 Personal history of nicotine dependence
CPT/HCPCS: J0690; J2704; J7120

== ENCOUNTER → 2021-06-22 | Outpatient (CLI) | payer MEDICARE, BC ==
[~2021-06-22] MED LIST changes: +CYMBALTA 30MG30 MG PO; +MAGNESIUM200 MG PO; +NATURAL E400 IU PO; +PACERONE100 MG PO; +VITAMIN B COMPL1 SGL PO; +VITAMIN D31000 I1 PO
== END ==
LOC: COL.RAD 13:31
DX: M47.816 Spondylosis without myelopathy or radiculopathy, lumbar region (principal); M48.061 Spinal stenosis, lumbar region without neurogenic claudication; Z98.1 Arthrodesis status
CPT/HCPCS: A9585

== ENCOUNTER → 2021-07-06 | Outpatient (CLI) | payer MEDICARE, BC ==
[2021-07-06 14:58] LABS: ALANINE AMINOTRANSFERASE 25 U/L (0-55); ALBUMIN 3.7 gm/dL (3.4-4.8); ALKALINE PHOSPHATASE 75 U/L (40-150); ANION GAP 9 mmol/L (7-16); AST,SGOT 20 U/L (5-34); BILIRUBIN,TOTAL 0.4 mg/dL (0.2-1.2); BLOOD UREA NITROGEN 12 mg/dL (10-20); CALCIUM 8.9 mg/dL (8.4-10.2); CARBON DIOXIDE 25 mmol/L (23-31); CHLORIDE 109 mmol/L (98-107); CREATININE, serum 1.12 mg/dL (0.57-1.11); GLUCOSE 94 mg/dL (70-99); MAGNESIUM 2.2 mg/dL (1.6-2.6); POTASSIUM 3.7 mmol/L (3.5-4.5); SODIUM 143 mmol/L (136-145); TOTAL PROTEIN 6.9 gm/dL (6.2-8.1)
[2021-07-06 15:19] LABS: THYROID STIMULATING HORMONE 1.257 uIU/mL (0.350-4.940)
[2021-07-06 15:25] LABS: TROPONIN-I < 0.010 ng/mL (0.00-0.033)
== END ==
LOC: ZCOL.LAB 14:29
PROVIDERS: Nurse Practitioner
DX: I48.0 Paroxysmal atrial fibrillation (principal)

== ENCOUNTER 2021-08-14 12:51 | Emergency (ER) | payer MEDICARE, BC ==
[~2021-08-14] VITALS: Ht 152.4 cm; Wt 79.5 kg
[2021-08-14 13:06] VITALS: TEMP 98.1
[2021-08-14] MEDS ORDERED: MEDROL 4MG DOSPA4 MG PO ×2 (15:21)
[2021-08-14] MEDS ORDERED: FLEXERIL5 MG PO ×2 (15:21)
[2021-08-14 15:40] VITALS: BP 145/77; PULSE 64
== END 2021-08-14 15:40 | disposition home or self-care (01) ==
LOC: COL.ER 12:51
DX: G89.29 Other chronic pain (principal); M54.50 Low back pain, unspecified; M16.11 Unilateral primary osteoarthritis, right hip; Z88.5 Allergy status to narcotic agent; Z88.6 Allergy status to analgesic agent
CPT/HCPCS: J1885; J3360

== ENCOUNTER → 2021-09-21 | Outpatient (CLI) | payer MEDICARE, BC ==
[~2021-09-21] MED LIST changes: +FLEXERIL5 MG PO; +MEDROL 4MG DOSPA4 MG PO
== END ==
LOC: COL.RAD 09:07
DX: M16.11 Unilateral primary osteoarthritis, right hip (principal)
CPT/HCPCS: A9503

== ENCOUNTER → 2021-11-10 | Outpatient (CLI) | payer MEDICARE, BC | LOC: COL.VAS 10:17 | DX: I48.19 Other persistent atrial fibrillation (principal) ==

== ENCOUNTER 2022-08-30 11:20 | Emergency (ER) | payer MEDICARE, BC ==
[~2022-08-30] VITALS: Ht 157.5 cm; Wt 82.3 kg
[2022-08-30 11:28] VITALS: TEMP 97.4
[2022-08-30 12:19] LABS: BASO % 0.5 % (0.0-2.0); EOS # 0.1 K/mm3 (0.0-0.7); EOS % 1.4 % (0.0-4.0); GRAN # 5.4 K/mm3 (1.4-6.5); GRAN % 61.9 % (42.2-75.2); HEMATOCRIT 37.7 % (37.0-47.0); HEMOGLOBIN 12.3 g/dl (12.5-16.0); LYMPH # 2.1 K/mm3 (1.2-3.4); LYMPH % 24.2 % (20.0-51.0); MEAN CELL VOLUME 93 fl (80.0-100.0); MEAN CORPUSCULAR HEMOGLOBIN 30 pg (27-31); MEAN CORPUSCULAR HGB CONC 33 g/dl (33.0-37.0); MEAN PLATELET VOLUME 9.6 fl (7.4-10.4); MONO % 11.5 % (1.7-9.3); PLATELET COUNT 331 K/mm3 (130-400); RED BLOOD COUNT 4.05 M/mm3 (4.10-5.30)
[2022-08-30 12:38] LABS: ALANINE AMINOTRANSFERASE 13 U/L (0-55); ALBUMIN 3.5 gm/dL (3.4-4.8); ALKALINE PHOSPHATASE 89 U/L (40-150); ANION GAP 10 mmol/L (7-16); AST,SGOT 16 U/L (5-34); BILIRUBIN,TOTAL 0.6 mg/dL (0.2-1.2); BLOOD UREA NITROGEN 16 mg/dL (10-20); CALCIUM 9.3 mg/dL (8.4-10.2); CARBON DIOXIDE 25 mmol/L (23-31); CHLORIDE 107 mmol/L (98-107); CREATININE, serum 1.04 mg/dL (0.57-1.11); GLUCOSE 86 mg/dL (70-99); INR 1.7 (0.8-3.0); POTASSIUM 3.6 mmol/L (3.5-4.5); PROTHROMBIN TIME 19.4 SECONDS (9.7-12.8); SODIUM 142 mmol/L (136-145); TOTAL PROTEIN 6.9 gm/dL (6.2-8.1)
[2022-08-30 12:41] LABS: PARTIAL THROMBOPLASTIN TIME 34.2 SECONDS (26.0-37.0)
[2022-08-30 12:51] LABS: TROPONIN-I < 0.010 ng/mL (0.00-0.033)
[2022-08-30 14:40] VITALS: BP 132/60; PULSE 76
== END 2022-08-30 14:50 | disposition home or self-care (01) ==
LOC: COL.ER 11:20
PROVIDERS: Family Medicine
DX: R00.2 Palpitations (principal); I48.91 Unspecified atrial fibrillation; Z79.899 Other long term (current) drug therapy; Z79.01 Long term (current) use of anticoagulants; Z95.0 Presence of cardiac pacemaker; Z91.040 Latex allergy status

== ENCOUNTER → 2022-09-20 | Outpatient (CLI) | payer MEDICARE, BC | LOC: COL.RAD 07:47 | DX: M25.551 Pain in right hip (principal); Z96.641 Presence of right artificial hip joint ==

== ENCOUNTER 2023-02-09 15:08 | Outpatient (CLI) | payer MEDICARE, BC ==
[~2023-02-09] VITALS: Ht 157.5 cm; Wt 81.7 kg
[2023-02-09 15:42] VITALS: BP 139/63; PULSE 57; TEMP 97.7
[2023-02-09] MEDS ORDERED: ELIQUIS 5MG PO (15:50)
== END 2023-02-09 15:55 | disposition home or self-care (01) ==
LOC: EUO 15:08
DX: M81.0 Age-related osteoporosis without current pathological fracture (principal)
CPT/HCPCS: J0897

== ENCOUNTER 2023-06-24 11:32 | Emergency (ER) | payer MEDICARE, BC ==
[~2023-06-24] VITALS: Ht 157.5 cm; Wt 82.7 kg
[2023-06-24 11:36] VITALS: TEMP 98.4
[2023-06-24] MEDS ORDERED: fentaNYL 50 MCG/ML 2 ML VIAL IV ONE (11:45)
[2023-06-24 12:58] VITALS: BP 142/69; PULSE 63
[2023-06-24] MEDS ORDERED: NORCO 325 MG-51 TAB PO (12:59)
== END 2023-06-24 13:06 | disposition home or self-care (01) ==
LOC: COL.ER 11:32
DX: S82.831A Other fracture of upper and lower end of right fibula, initial encounter for closed fracture (principal); S70.01XA Contusion of right hip, initial encounter; G89.29 Other chronic pain; M54.50 Low back pain, unspecified; Z91.040 Latex allergy status; Z79.01 Long term (current) use of anticoagulants; Z88.5 Allergy status to narcotic agent; Z88.6 Allergy status to analgesic agent; W00.0XXA Fall on same level due to ice and snow, initial encounter
CPT/HCPCS: J3010; L4386

== ENCOUNTER 2023-09-06 14:58 | Outpatient (CLI) | payer MEDICARE, BC ==
[~2023-09-06] VITALS: Ht 157.5 cm; Wt 82.0 kg
[~2023-09-06 14:58] MED LIST changes: -CYMBALTA 30MG30 MG PO; +CYMBALTA 60MG60 MG PO
[2023-09-06 15:21] VITALS: BP 143/71; PULSE 56; TEMP 98.5
[2023-09-06] MEDS ORDERED: Denosumab 60 MG/ML SYRINGE SQ ONE (15:30)
[2023-09-06] MEDS ORDERED: TOPROL XL 25MG25 MG PO (15:37)
[2023-09-06] MEDS ORDERED: TAMBOCOR50 MG PO (15:38)
[2023-09-06] MEDS ORDERED: MULTIVITAMIN FO1 CAP PO (15:39)
--- NOTE | 2023-09-06 15:49 | NUR ---
Pt tolerated prolia without issue. She is assisted out to granddaughter's car by wheelchair.
== END 2023-09-06 15:50 | disposition home or self-care (01) ==
LOC: EUO 14:58
DX: M81.0 Age-related osteoporosis without current pathological fracture (principal)
CPT/HCPCS: J0897